=== PATIENT | female | born 1975 | race African-American/Black ===

== ENCOUNTER 2016-05-05 02:49 | Inpatient (IN) ==
--- NOTE | 2016-05-05 03:19 | PROVIDER DOCUMENTATION ---
HPI-General Adult <Fernando BarbosaBrando - Last Filed: 05/05/16 05:03> - General Source: patient - History of Present Illness -Gen Adult Nature of Presenting Problems: Pt is a 40 yof who presents to ER via EMS with CC of generalized leg weakness. Pt reports that she woke up this morning and was feeling weak, but drank 4 beers tonight and has had increased weakness since. On exam, pt smells heavily of alcohol. Location of Pain/Injury: reports: lower extremity (bilateral) Quality of Pain: reports: other (weakness) Onset/Duration: reports: this morning Timing: reports: still present Modifying Factors: worse with: other (beer) Associated Symptoms: reports: fatigue, weakness <Derick Porter - Last Filed: 05/06/16 15:14> - General Chief Complaint: Weakness Stated Complaint: wakness in feet Time Seen by Provider: 05/05/16 03:00 Allergies/Adverse Reactions: Patient Allergies Allergy/AdvReac Type Severity Reaction Status Date / Time No Known Allergies Allergy Verified 05/05/16 02:56 Home Medications: No Home Medications 05/05/16 Review of Systems - Adult - REVIEW OF SYSTEMS - ADULT Constitutional: reports: fatique. denies: chills, fever Eyes: reports: no symptoms reported Ears, Nose, Mouth & Throat: reports: no symptoms reported Cardiovascular: reports: no symptoms reported Respiratory: reports: no symptoms reported Gastrointestinal: reports: no symptoms reported Genitourinary: reports: no symptoms reported Musculoskeletal: reports: muscle weakness (bilateral lower extremities). denies : frequent leg cramps, joint pain, joint swelling, muscle aches Integumentary: reports: no symptoms reported Neurological: reports: no symptoms reported Psychiatric: reports: no symptoms reported Endocrine: reports: no symptoms reported Hematologic/Lymphatic: reports: no symptoms reported Allergic/Immunologic: reports: no symptoms reported All Other Systems: Reviewed and Negative <Derick Porter - Last Filed: 05/06/16 15:14> Past History - Adult - PAST MEDICAL HISTORY-ADULT Review of Records: reports: Nursing Assessment Review, Medications Reviewed Major Childhood Illnesses: reports: other (ear infections) - PRIOR SURGERIES/PROCEDURES Surgical/Procedure History: reports: other (Bilateral PET tubes) - IMMUNIZATION STATUS Childhood Immunizations: See Nurse Assessment Flu Vaccine: See Nurse Assessment - SOCIAL HISTORY Substance Use: alcohol Number of drinks per typical drinking period:: 3-4 drinks <Derick Porter - Last Filed: 05/06/16 15:14> Physical Exam-General - NEUROLOGIC Neurologic: other (nonfocal, notable leg weakness) <Fernando Barbosa - Last Filed: 05/05/16 05:03> - PHYSICAL EXAM-ADULT Initial Vital Signs Reviewed: Yes - CONSTITUTIONAL General Appearance: appears well, alert, no apparent distress - EYES Eyes: PERRL/EOMI, pink conjunctivae, fundi clear, no AV nicking - HEAD, EARS, NOSE, MOUTH & THROAT HENMT: normocephalic/atraumatic, moist mucous membranes - RESPIRATORY Respiratory: chest non-tender, lungs clear, normal breath sounds - CARDIOVASCULAR Cardiovascular: normal peripheral pulses, regular rate, rhythm - LYMPHATIC Lymphatic: no adenopathy - MUSCULOSKELETAL Back Exam: no CVA tenderness, no vertebral tenderness Extremity: normal range of motion, non-tender, normal gait - SKIN Integumentary: normal color, normal turgor, warm/dry - NEUROLOGIC Neurologic: grossly normal, no motor/sensory deficits - PSYCHIATRIC Psych/Mental Status: normal mood/affect, normal thought content, normal thought process, oriented x 3 <Derick Porter - Last Filed: 05/06/16 15:14> Progress - PLAN OF CARE/RESULTS Progress/Plan/Lab Results: Vital Signs - 24 hr 05/05/16 05/05/16 05/06/16 15:38 20:12 06:04 Temperature 98.0 F 97.6 F 97.7 F Pulse Rate 98 H 40 L 121 H Respiratory 16 18 20 Rate Blood Pressure 132/72 120/73 136/94 O2 Sat by Pulse 100 91 L 91 L Oximetry Orders Category Date Time Status Admit - [facility] [place] [facility] - [facility] Routine AdmDCTranf 05/05/16 05:56 Ordered Admit To Inpatient From Observation Routine AdmDCTranf 05/05/16 08:49 Ordered Discharge Patient Routine AdmDCTranf 05/06/16 09:12 Ordered Activity - Up with Assistance ORDERED Care 05/05/16 05:56 Active Apply Mechanical Device [QM] ORDERED Care 05/05/16 05:56 Active IV Discontinuation ORDERED Care 05/06/16 09:12 Active Intake and Output-Strict ORDERED Care 05/05/16 05:56 Active Orthostatic Vital Signs NOW Care 05/05/16 03:07 Active PT Acute Evaluation DIRECTED Care 05/06/16 09:13 Active Vital Signs Order Q 8-HR ASSESS Care 05/05/16 05:56 Active Regular Diet Diet 05/05/16 05:57 Active ALCOHOL BLOOD Stat Lab 05/05/16 03:29 Completed BASIC METABOLIC PANEL [CHEM] Routine Lab 05/06/16 05:46 Completed BMP [BASIC METABOLIC PANEL] [CHEM] Stat Lab 05/05/16 14:30 Completed CBC WITH DIFF [HEME] Routine Lab 05/06/16 05:46 Completed CBC WITH ELECTRONIC DIFF [HEME] Stat Lab 05/05/16 03:29 Completed COMPREHENSIVE METABOLIC PANEL [CHEM] Stat Lab 05/05/16 03:29 Completed FERRITIN Routine Lab 05/06/16 05:46 Completed FOLATE Routine Lab 05/06/16 05:46 Completed MAGNESIUM [CHEM] Stat Lab 05/05/16 03:29 Completed PHOSPHORUS [CHEM] Stat Lab 05/05/16 03:28 Completed TEST-URINE [PREG] Stat Lab 05/05/16 03:29 Completed PROTIME WITH INR [COAG] Routine Lab 05/06/16 05:46 Completed PTT [COAG] Routine Lab 05/06/16 05:46 Completed TSH Routine Lab 05/06/16 05:46 Completed UIBC W TOTAL IRON [CHEM] Routine Lab 05/06/16 05:46 Completed URINALYSIS W/POSS RFLX CULT [URINALYSIS] Stat Lab 05/05/16 03:29 Completed URINE DRUG SCREEN Stat Lab 05/05/16 03:29 Completed VITAMIN B12 Routine Lab 05/06/16 05:46 Completed 0.9% Sodium Chloride Inj [Ns] 1,000 ml Med 05/05/16 12:00 Active IV 150 mls/hr 0.9% Sodium Chloride Inj [Ns] 1,000 ml Med 05/05/16 11:54 Discontinued IV 999 mls/hr Diazepam [Valium] Med 05/06/16 02:31 Discontinued 5 mg IV NOW ONE Lorazepam [Ativan] Med 05/05/16 09:44 Active 1 mg IM Q4H PRN PRN Magnesium Sulfate 2 gm/S.w.i. [Magnesium Sulfate 2 gm/S Med 05/05/16 05:54 Discontinued .w.i] 50 ml IV NOW Mvi [M.v.i.-12] 10 ml Med 05/05/16 04:42 Discontinued Folic Acid 1 mg Magnesium Sulfate 1 gm Thiamine 100 mg 0.9% Sodium Chloride Inj [Ns] 1,000 ml IV NOW Ns + KCl 40 Meq 1,000 ml Med 05/05/16 06:00 Discontinued IV 100 mls/hr Ondansetron [Zofran] Med 05/05/16 05:56 Active 4 mg IV Q4H PRN PRN Potassium Chloride 20 Meq/Swi 100 ml Med 05/05/16 05:15 Discontinued IV Q2H Potassium Chloride 20% Liquid Med 05/05/16 04:43 Discontinued 40 meq PO NOW ONE Potassium Chloride 60 meq Med 05/05/16 12:00 Discontinued 0.9% Sodium Chloride Inj [Ns] 500 ml IV Q8H Telemetry [OM.EQ] Routine Oth 05/05/16 05:56 Active EKG [EKG] Stat Ther 05/05/16 07:10 Ordered Transfer/Admit Order [TRANSFER] Routine Transfer 05/05/16 06:03 Completed Laboratory Tests 05/05/16 05/05/16 05/05/16 03:28 03:29 03:29 WBC 4.47 L RBC 3.81 L Hgb 11.6 L Hct 33.3 L MCV 87.4 MCH 30.4 MCHC 34.8 RDW Std Deviation 14.3 Plt Count 218 MPV 10.3 Immature Gran % (Auto) 0.0 Neut % (Auto) 27.9 L Lymph % (Auto) 59.1 H Porter % (Auto) 11.9 H Eos % (Auto) 0.4 Baso % (Auto) 0.7 Immature Gran # (Auto) 0.00 Neut # (Auto) 1.25 L Lymph # (Auto) 2.64 Porter # (Auto) 0.53 Eos # (Auto) 0.02 Baso # (Auto) 0.03 PT INR PTT (Actin FS) Sodium 142 Potassium 2.2 L* Chloride 95 L Carbon Dioxide 28 Anion Gap 19 BUN 7 L Creatinine 0.9 Estimated GFR/1.73 m2 > 60 BUN/Creatinine Ratio 8 Glucose 90 Calculated Osmolality 281 Calcium 10.1 Phosphorus 1.1 L Magnesium Iron TIBC % Saturation Unsat Iron Binding Ferritin Total Bilirubin 0.29 AST 86 H ALT 30 Alkaline Phosphatase 52 Total Protein 7.4 Albumin 3.7 Globulin 3.7 Albumin/Globulin Ratio 1.0 Vitamin B12 Folate TSH Urine Source Urine Color Urine Turbidity Urine pH Ur Specific [place] Urine Protein Ur Glucose (Stick) Ur Ketones (Stick) Urine Blood Urine Nitrite Urine Bilirubin Urobilinogen Dipstick Urine Leukocytes Urine WBC (Auto) Urine RBC (Auto) U Epithel Cells (Auto) Urine Bacteria (Auto) Urine Test Urine Opiates Screen Ur Oxycodone Screen Ur Methadone, Qual Ur Barbiturates Screen Ur Phencyclidine Scrn Ur Amphetamines Screen U Benzodiazepines Scrn Urine Cocaine Screen U Cannabinoids Screen Plasma/Serum Ethyl Alc 05/05/16 05/05/16 05/05/16 03:29 03:29 03:29 WBC RBC Hgb Hct MCV MCH MCHC RDW Std Deviation Plt Count MPV Immature Gran % (Auto) Neut % (Auto) Lymph % (Auto) Porter % (Auto) Eos % (Auto) Baso % (Auto) Immature Gran # (Auto) Neut # (Auto) Lymph # (Auto) Porter # (Auto) Eos # (Auto) Baso # (Auto) PT INR PTT (Actin FS) Sodium Potassium Chloride Carbon Dioxide Anion Gap BUN Creatinine Estimated GFR/1.73 m2 BUN/Creatinine Ratio Glucose Calculated Osmolality Calcium Phosphorus Magnesium 1.4 L Iron TIBC % Saturation Unsat Iron Binding Ferritin Total Bilirubin AST ALT Alkaline Phosphatase Total Protein Albumin Globulin Albumin/Globulin Ratio Vitamin B12 Folate TSH Urine Source CLEAN CATCH Urine Color STRAW Urine Turbidity CLEAR Urine pH 6.0 Ur Specific [place] 1.003 Urine Protein NEGATIVE Ur Glucose (Stick) NEGATIVE Ur Ketones (Stick) NEGATIVE Urine Blood NEGATIVE Urine Nitrite NEGATIVE Urine Bilirubin NEGATIVE Urobilinogen Dipstick NORMAL Urine Leukocytes NEGATIVE Urine WBC (Auto) <10 Urine RBC (Auto) <10 U Epithel Cells (Auto) <10 Urine Bacteria (Auto) NEGATIVE Urine Test Urine Opiates Screen Ur Oxycodone Screen Ur Methadone, Qual Ur Barbiturates Screen Ur Phencyclidine Scrn Ur Amphetamines Screen U Benzodiazepines Scrn Urine Cocaine Screen U Cannabinoids Screen Plasma/Serum Ethyl Alc 292 H 05/05/16 05/05/16 05/05/16 03:29 03:29 14:30 WBC RBC Hgb Hct MCV MCH MCHC RDW Std Deviation Plt Count MPV Immature Gran % (Auto) Neut % (Auto) Lymph % (Auto) Porter % (Auto) Eos % (Auto) Baso % (Auto) Immature Gran # (Auto) Neut # (Auto) Lymph # (Auto) Porter # (Auto) Eos # (Auto) Baso # (Auto) PT INR PTT (Actin FS) Sodium 141 Potassium 3.9 D Chloride 98 Carbon Dioxide 22 L Anion Gap 21 BUN 4 L Creatinine 0.6 Estimated GFR/1.73 m2 > 60 BUN/Creatinine Ratio 7 Glucose 76 Calculated Osmolality 277 Calcium 8.9 Phosphorus Magnesium Iron TIBC % Saturation Unsat Iron Binding Ferritin Total Bilirubin AST ALT Alkaline Phosphatase Total Protein Albumin Globulin Albumin/Globulin Ratio Vitamin B12 Folate TSH Urine Source Urine Color Urine Turbidity Urine pH Ur Specific [place] Urine Protein Ur Glucose (Stick) Ur Ketones (Stick) Urine Blood Urine Nitrite Urine Bilirubin Urobilinogen Dipstick Urine Leukocytes Urine WBC (Auto) Urine RBC (Auto) U Epithel Cells (Auto) Urine Bacteria (Auto) Urine Test NEGATIVE Urine Opiates Screen NONE DETECTED Ur Oxycodone Screen NONE DETECTED Ur Methadone, Qual NONE DETECTED Ur Barbiturates Screen NONE DETECTED Ur Phencyclidine Scrn NONE DETECTED Ur Amphetamines Screen NONE DETECTED U Benzodiazepines Scrn NONE DETECTED Urine Cocaine Screen NONE DETECTED U Cannabinoids Screen NONE DETECTED Plasma/Serum Ethyl Alc 05/06/16 05/06/16 05/06/16 05:46 05:46 05:46 WBC 5.13 RBC 3.20 L Hgb 9.7 L D Hct 28.4 L MCV 88.8 MCH 30.3 MCHC 34.2 RDW Std Deviation 14.7 H Plt Count 177 MPV 10.7 H Immature Gran % (Auto) 0.0 Neut % (Auto) 44.5 Lymph % (Auto) 40.7 Porter % (Auto) 13.8 H Eos % (Auto) 0.6 Baso % (Auto) 0.4 Immature Gran # (Auto) 0.00 Neut # (Auto) 2.28 Lymph # (Auto) 2.09 Porter # (Auto) 0.71 H Eos # (Auto) 0.03 Baso # (Auto) 0.02 PT INR PTT (Actin FS) Sodium 141 Potassium 4.2 Chloride 105 Carbon Dioxide 21 L Anion Gap 15 BUN 2 L Creatinine 0.6 Estimated GFR/1.73 m2 > 60 BUN/Creatinine Ratio 3 Glucose 71 Calculated Osmolality 276 Calcium 7.8 L Phosphorus Magnesium Iron 109 TIBC 167 % Saturation 65 Unsat Iron Binding 58 L Ferritin 206 H Total Bilirubin AST ALT Alkaline Phosphatase Total Protein Albumin Globulin Albumin/Globulin Ratio Vitamin B12 660 Folate TSH 4.21 H Urine Source Urine Color Urine Turbidity Urine pH Ur Specific [place] Urine Protein Ur Glucose (Stick) Ur Ketones (Stick) Urine Blood Urine Nitrite Urine Bilirubin Urobilinogen Dipstick Urine Leukocytes Urine WBC (Auto) Urine RBC (Auto) U Epithel Cells (Auto) Urine Bacteria (Auto) Urine Test Urine Opiates Screen Ur Oxycodone Screen Ur Methadone, Qual Ur Barbiturates Screen Ur Phencyclidine Scrn Ur Amphetamines Screen U Benzodiazepines Scrn Urine Cocaine Screen U Cannabinoids Screen Plasma/Serum Ethyl Alc 05/06/16 05/06/16 05:46 05:46 WBC RBC Hgb Hct MCV MCH MCHC RDW Std Deviation Plt Count MPV Immature Gran % (Auto) Neut % (Auto) Lymph % (Auto) Porter % (Auto) Eos % (Auto) Baso % (Auto) Immature Gran # (Auto) Neut # (Auto) Lymph # (Auto) Porter # (Auto) Eos # (Auto) Baso # (Auto) PT 11.1 INR 1.05 PTT (Actin FS) 28.1 Sodium Potassium Chloride Carbon Dioxide Anion Gap BUN Creatinine Estimated GFR/1.73 m2 BUN/Creatinine Ratio Glucose Calculated Osmolality Calcium Phosphorus Magnesium Iron TIBC % Saturation Unsat Iron Binding Ferritin Total Bilirubin AST ALT Alkaline Phosphatase Total Protein Albumin Globulin Albumin/Globulin Ratio Vitamin B12 Folate 12.5 TSH Urine Source Urine Color Urine Turbidity Urine pH Ur Specific [place] Urine Protein Ur Glucose (Stick) Ur Ketones (Stick) Urine Blood Urine Nitrite Urine Bilirubin Urobilinogen Dipstick Urine Leukocytes Urine WBC (Auto) Urine RBC (Auto) U Epithel Cells (Auto) Urine Bacteria (Auto) Urine Test Urine Opiates Screen Ur Oxycodone Screen Ur Methadone, Qual Ur Barbiturates Screen Ur Phencyclidine Scrn Ur Amphetamines Screen U Benzodiazepines Scrn Urine Cocaine Screen U Cannabinoids Screen Plasma/Serum Ethyl Alc <Derick Porter - Last Filed: 05/06/16 15:14> Departure - Departure Certified Medical Emergency: Emergent <Fernando Barbosa - Last Filed: 05/05/16 05:03> - Departure Time of Disposition Order: 06:10 Certified Medical Emergency: Emergent <Derick Porter - Last Filed: 05/06/16 15:14> - Departure DIAGNOSIS: Weakness Alcohol intoxication Qualifiers: Complication of substance-induced condition: uncomplicated Qualified Code(s): F10.120 - Alcohol abuse with intoxication, uncomplicated Disposition: HOME 01 Condition: Stable Attestation - Scribe Verification/Attestation Scribe:: Derick Porter Acting as Scribe for:: Fernando Barbosa Scribe documention review:: This chart was documented by a scribe and accurately reflects the service the provider performed and the decisions made by the provider. <Derick Porter - Last Filed: 05/06/16 15:14> Physician Attestation
[2016-05-05 03:32] LABS: MANUAL DIFF NEEDED? NO
[2016-05-05 03:40] LABS: BASO% 0.7 % (0.0-0.8); EOS# 0.02 X1000 (0.0-0.7); EOS% 0.4 % (0.0-10.0); HEMATOCRIT 33.3 % (37.0-47.0); HEMOGLOBIN 11.6 g/dL (12.0-16.0); LYMPH# 2.64 X1000 (1.2-3.4); LYMPH% 59.1 % (20.5-51.1); MCH 30.4 PG (27-31); MCHC 34.8 g/dL (33-37); MCV 87.4 FL (81-99); MONO# 0.53 X1000 (0.11-0.59); MONO% 11.9 % (1.7-9.3); MPV 10.3 FL (7.4-10.4); NEUT% 27.9 % (42.2-75.2); PLT 218 X1000 (130-400); RBC 3.81 XMIL (4.2-5.4)
[2016-05-05 04:38] LABS: AGAP 19; ALBUMIN 3.7 g/dL (3.5-5.0); ALKALINE PHOSPHATASE 52 U/L (32-104); BUN 7 mg/dL (8-22); CALCIUM 10.1 mg/dL (8.8-10.2); CHLORIDE 95 mmol/L (98-107); COSMO 281; GOT 86 U/L (10-30); GPT 30 U/L (10-36); SODIUM 142 mmol/L (136-145); TCO2 28 mmol/L (25-35); TOTAL BILIRUBIN 0.29 mg/dL (0.20-1.00); TOTAL PROTEIN 7.4 g/dL (6.3-8.3)
[2016-05-05] MEDS ORDERED: M.V.I.-12 10 ML, FOLIC ACID 1 MG, MAGNESIUM SULFATE 1 GM, THIAMINE 100 MG in NS 1,000 ML IV ONE (04:42)
[2016-05-05] MEDS ORDERED: POTASSIUM CHLORIDE 20% LIQUID PO ONE (04:43)
[2016-05-05 04:52] LABS: URINE CULTURE NEEDED? NO; URINE MICRO REVIEW NEEDED? NO; URINE SOURCE CLEAN CATCH
[2016-05-05 04:56] LABS: BILIRUBIN URINE NEGATIVE (NEGATIVE); BLOOD URINE NEGATIVE (NEGATIVE); COLOR STRAW; GLUCOSE URINE NEGATIVE (NEGATIVE); LEUKOCYTES URINE NEGATIVE (NEGATIVE); NITRITE URINE NEGATIVE (NEGATIVE); PROTEIN URINE NEGATIVE (NEGATIVE); SP GRAVITY URINE 1.003; TURBIDITY URINE CLEAR (CLEAR); UROBILINOGEN URINE NORMAL (NORMAL)
[2016-05-05 04:57] LABS: UR EPITHELIAL CELLS <10 /HPF (<10); URINE BACTERIA NEGATIVE /HPF; URINE RBC <10 /HPF (<10); URINE WBC <10 /HPF (<10)
[2016-05-05] MEDS ORDERED: POTASSIUM CHLORIDE 40 MEQ/SWI 100 ML IV ONE (05:04)
[2016-05-05 05:09] LABS: UR AMPHETAMINES QUAL NONE DETECTED (NONE DETECT); UR BARBITUATES QUAL NONE DETECTED (NONE DETECT); UR BENZODIAZEPIN QUAL NONE DETECTED (NONE DETECT); UR CANNABINOIDS QUAL NONE DETECTED (NONE DETECT); UR COCAINE QUAL NONE DETECTED (NONE DETECT); UR METHADONE QUAL NONE DETECTED (NONE DETECT); UR OPIATES QUAL NONE DETECTED (NONE DETECT); UR OXYCODONE QUAL NONE DETECTED (NONE DETECT); UR PCP QUAL NONE DETECTED (NONE DETECT)
[2016-05-05] MEDS ORDERED: MAGNESIUM SULFATE 2 GM/S.W.I. 50 ML IV ONE (05:54)
[2016-05-05] MEDS ORDERED: ZOFRAN IV PRN (05:56)
[2016-05-05] MEDS ORDERED: NS + KCL 40 MEQ 1,000 ML IV SCH (06:00)
[2016-05-05] MEDS: POTASSIUM CHLORIDE 20 MEQ/SWI 100 ML IV SCH ×3 (06:50→15:00)
[2016-05-05 06:59] LABS: POTASSIUM 2.2 mmol/L (3.5-5.1)
--- NOTE | 2016-05-05 07:31 | HISTORY AND PHYSICAL ---
CHIEF COMPLAINT: Weakness. HISTORY OF PRESENT ILLNESS: This is a 40-year-old female who had complained of feeling very cold, especially in her feet, and noted generalized weakness in her legs that has been progressing over the past week. She has had several presentations to the emergency room with intoxication. She does openly state that she drinks 3-6 beers daily. The patient denies any kind of medical history. She states that she has, overall, felt lethargic and then again had "cold feet." She stated that she was standing in front of the sink this afternoon and began having pain in her lower legs and feet as well, so, she came to the emergency room. Laboratory data was completed, which was grossly normal other than a potassium of 2.2, an AST of 86, and a serum alcohol level of 292. The patient will be admitted for further observation and treatment. PAST MEDICAL HISTORY: None. PREVIOUS SURGICAL HISTORY: None. FAMILY HISTORY: Father had prostate and bone cancer. Mother had unspecified cardiac disease. HOME MEDICATIONS: None. SOCIAL HISTORY: Lives at home with her . Drinks alcohol 3-6 beers daily. She does not smoke cigarettes. She does use chewing tobacco and has since she was roughly 9 years old. Denies illicit drug use or abuse. ALLERGIES: No known drug allergies. REVIEW OF SYSTEMS: Fourteen point review of systems conducted with the patient. All systems negative except for pertinent positives listed above in the HPI. PHYSICAL EXAMINATION: VITAL SIGNS: Temperature 97.7 degrees. Pulse 96. Respirations 20. Blood pressure 121/75. Oxygen saturation 100% on room air. GENERAL: This is a frail, malnourished appearing, 40-year-old female, very pleasant, lying in the ER stretcher. HEENT: Head is atraumatic, normocephalic. Pupils equal, round, reactive to light. Extraocular eye movement intact. Sclerae is nonicteric. Conjunctivae is mildly pale. Oral mucosa is dry. Poor dentition noted. NECK: Supple. No JVD. No thyromegaly. Trachea is midline. CARDIAC: Regular rate and rhythm. S1-S2 appreciated. No murmurs, gallops, rubs. LUNGS: Clear to auscultation bilaterally. No rhonchi, wheezes or rales. ABDOMEN: Soft. Nondistended, nontender. Bowel sounds present in all 4 quadrants. Normoactive. No pulsatile mass. No organomegaly. EXTREMITIES: No clubbing, cyanosis, edema. Pedal pulses 2+ bilaterally. GENITOURINARY: The patient voids; otherwise, deferred. NEUROLOGICAL: Alert and oriented x3. Answers all questions appropriately. Despite smelling heavily of alcohol, patient does not appear to be intoxicated. No focal deficits. No tremors noted. MUSCULOSKELETAL: Normal range of motion except for left upper extremity. 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 LABORATORY DATA: WBC 4.47. Hemoglobin 11.6. Hematocrit 33.3. Platelet count 218,000. Sodium 142. Potassium 2.2. Chloride 95. Carbon dioxide 28. BUN 7. Creatinine 0.9. Glucose 90. AST 86. ALT 30. Urine unremarkable. Toxicology screen negative. Serum alcohol 292. ASSESSMENT AND PLAN: 1. Alcohol intoxication with electrolyte imbalances. 2. Generalized fatigue and weakness. 3. Hypokalemia. 4. Hypomagnesemia. 5. Anemia. PLAN: Admit patient to the medical floor. She has been in observation status. Check a phosphorus level. Will complete an anemia panel. She has received a multivitamin bag in the emergency room as well as 40 mEq of potassium p.o. She is also receiving 40 mEq of potassium IV. We will treat with magnesium 2 g IV, start normal saline with 40 mEq of KCl at 100 mL an hour and Zofran 4 mg IV as needed for nausea, recheck potassium level today at 4 p.m., and recheck CBC and BMP in a.m. if patient has not been discharged. Further recommendations per patient protocol. Dictated by ERIKA Jefferson for Maryjane Jaramillo MD
[2016-05-05] MEDS ORDERED: ATIVAN IM PRN (09:44)
--- NOTE | 2016-05-05 10:04 | ED EKG INTERP ---
EKG Interpretation - EKG Time of EKG reading by physician:: 07:18 EKG Read and Signed by:: Patricia Douglas EKG Interpretation (*Must complete 3 of following elements*): Abnormal Rate: 89 (low voltage QRS; cannot rule out anterior infarct) Rhythm: NSR Attestation - Scribe Verification/Attestation Scribe:: Magda Sotomayor Acting as Scribe for:: Patricia Douglas Scribe documention review:: This chart was documented by a scribe and accurately reflects the service the provider performed and the decisions made by the provider.
[2016-05-05] MEDS ORDERED: NS 1,000 ML IV ONE (11:54)
[2016-05-05] MEDS: NS 1,000 ML IV SCH (12:41)
[2016-05-05] MEDS: POTASSIUM CHLORIDE 60 MEQ in NS 500 ML IV SCH (14:45)
[2016-05-05 15:36] LABS: AGAP 21; BUN 4 mg/dL (8-22); CALCIUM 8.9 mg/dL (8.8-10.2); CHLORIDE 98 mmol/L (98-107); COSMO 277; POTASSIUM 3.9 mmol/L (3.5-5.1); SODIUM 141 mmol/L (136-145); TCO2 22 mmol/L (25-35)
[2016-05-06] MEDS: POTASSIUM CHLORIDE 60 MEQ in NS 500 ML IV SCH (00:12)
[2016-05-06] MEDS ORDERED: VALIUM IV ONE (02:31)
[2016-05-06] MEDS: NS 1,000 ML IV SCH (02:33)
[2016-05-06 06:05] VITALS: BP 136/94
[2016-05-06 06:12] LABS: MANUAL DIFF NEEDED? NO
[2016-05-06 06:35] LABS: AGAP 15; BASO% 0.4 % (0.0-0.8); BUN 2 mg/dL (8-22); CALCIUM 7.8 mg/dL (8.8-10.2); CHLORIDE 105 mmol/L (98-107); COSMO 276; EOS# 0.03 X1000 (0.0-0.7); EOS% 0.6 % (0.0-10.0); HEMATOCRIT 28.4 % (37.0-47.0); HEMOGLOBIN 9.7 g/dL (12.0-16.0); IRON SATURATION 65 %; LYMPH# 2.09 X1000 (1.2-3.4); LYMPH% 40.7 % (20.5-51.1); MCH 30.3 PG (27-31); MCHC 34.2 g/dL (33-37); MCV 88.8 FL (81-99); MONO# 0.71 X1000 (0.11-0.59); MONO% 13.8 % (1.7-9.3); MPV 10.7 FL (7.4-10.4); NEUT% 44.5 % (42.2-75.2); PLT 177 X1000 (130-400); POTASSIUM 4.2 mmol/L (3.5-5.1); SODIUM 141 mmol/L (136-145); TCO2 21 mmol/L (25-35); TIBC 167 ug/dL; TOTAL IRON 109 ug/dL (49-151); UNBOUND IRON 58 ug/dL (112-346)
[2016-05-06 06:37] LABS: INR 1.05; PROTIME 11.1 Seconds (9.2-11.7); PTT 28.1 Seconds (22.0-36.0)
--- NOTE | 2016-05-06 15:16 | DISCHARGE SUMMARY ---
ADMISSION DATE: 05/05/2016 DISCHARGE DATE: 05/06/2016 DISCHARGE DIAGNOSIS: 1. Alcohol intoxication, resolved. 2. Severe hypokalemia, completely resolved. 3. Hypomagnesemia, resolved. 4. Anemia of chronic disease is stable. CONSULTATIONS: Known. HOSPITAL COURSE: This is a 40-year-old, female who was brought to the emergency department because he was complaining of feeling very cold. She has had several presentations to the emergency department with alcohol intoxication. She reports drinking 3-6 beers daily. She noticed also some cramping in both lower extremities, so that is why she decided to present to the emergency department. Here she was found to have a potassium of 2.2 and of 86, so she was admitted to the hospital. Alcohol level was 292. The patient was started on IV fluid resuscitation, thiamine and folate IV and also potassium supplementation. The day of discharge, the potassium was back to normal and she is feeling definitely much better with definitely almost no cramping in both legs and her much better so we decided to send this patient home to self-care. Patient advised to not drink alcohol anymore. DISCHARGE PHYSICAL EXAMINATION: Vital signs: Temperature 97.7 degrees, heart rate 120, respiratory rate 20, blood pressure 136/94, O2 saturation 91% on room air. General: This is a very frail and tiny malnourished-appearing 40-year-old female lying in bed, in no acute distress. HEENT: Head is normocephalic, atraumatic. Anicteric sclerae and pale conjunctivae. Mucous membranes moist. Neck: Supple. No JVD noted. No carotid bruits. No lymphadenopathy. No thyromegaly. Cardiovascular: S1, S2 heard. No murmurs, gallops, or rubs. Regular rate and rhythm. Respiratory: Clear bilaterally to auscultation. No work of breathing or using accessory muscles. Abdomen: Soft, nontender to palpation. Bowel sounds present. No organomegaly. Extremities: No clubbing, cyanosis, or edema. Peripheral pulses present in both legs. Neurological: Patient alert and oriented x3. Able to move 4 extremities. Cranial nerves 2-12 grossly normal. DISCHARGE DISPOSITION: To home to self-care. FOLLOW UP: As needed with primary care physician. MEDICATIONS: None.
--- NOTE | 2016-05-07 06:17 | EKG Report ---
Test Performed on : 05/05/2016 07:18:09 AM Test Reason : low potassium Blood Pressure : / mmHG Vent. Rate : 089 BPM Atrial Rate : 089 BPM P-R Int : 168 ms QRS Dur : 072 ms QT Int : 360 ms P-R-T Axes : 071 017 020 degrees QTc Int : 438 ms Normal sinus rhythm. Low voltage QRS Cannot rule out Anterior infarct , age undetermined Abnormal ECG No previous ECGs available Unconfirmed Result
== END 2016-05-06 15:18 | disposition home or self-care (01) | DRG 897 ==
LOC: EDUNIT# → EDBD → ED 02:49 → OBSVTOIN 06:10 → EDIPHOLD 06:10 → 4N 10:25
PROVIDERS: ATTEND Internal Medicine
DX: F10.120 Alcohol abuse with intoxication, uncomplicated (principal); E46 Unspecified protein-calorie malnutrition; Z68.1 Body mass index [BMI] 19.9 or less, adult; F17.220 Nicotine dependence, chewing tobacco, uncomplicated; E87.6 Hypokalemia; E83.42 Hypomagnesemia; D64.9 Anemia, unspecified; D63.8 Anemia in other chronic diseases classified elsewhere; Z80.42 Family history of malignant neoplasm of prostate; Z80.8 Family history of malignant neoplasm of other organs or systems; Y90.8 Blood alcohol level of 240 mg/100 ml or more
CPT/HCPCS: 80048; 80053; 81001; 81025; 82607; 82728; 82746; 83540; 83550; 83735; 84100; 84443; 85025; 85610; 85730; 93005; G0480; J2060; J3360; J3411; J3475; J3480; J7030; J7040; 97140-GP